=== PATIENT | female | born 1945 | race Caucasian/White ===

== ENCOUNTER 2025-03-10 10:13 | Observation (INO) ==
--- NOTE | 2025-03-10 11:19 | XRay Report ---
XR chest 1V portable HISTORY: 79 years-old Female cp, cough acute chest pain COMPARISON: 04/13/2018 TECHNIQUE: AP view of the chest FINDINGS: Cardiac silhouette is enlarged. Moderate to large hiatal hernia. No pneumothorax, pleural effusion, a irspace consolidation or pulmonary edema. Bones appear grossly intact. IMPRESSION: 1. Cardiomegaly without acute process. 2. Hiatal hernia. ACT 112: Negative or not required by law. The above report was generated using voice recognition software. It may contain grammatical, syntax o r spelling errors. Electronically signed by: Clark Bond M.D. 03/10/2025 11:18 AM
[2025-03-10] MEDS: BENZONATATE 100 MG CAPSULE PO ONE (11:27)
[2025-03-10] MEDS: FAMOTIDINE 20MG IV PUSH 20 MG/5 ML SYR IV STA (11:27)
[2025-03-10] MEDS: SODIUM CHLORIDE 0.9% 1,000 ML IV SCH (11:27)
[2025-03-10 11:51] LABS: Hematocrit (blood only) 37.6 % (37.0-47.0); Hemoglobin 13.5 g/dl (12.0-16.0); Immature Granulocytes # (auto) 0.04 K/uL (0.01-0.20); Immature Granulocytes % (auto) 0.4 %; Mean Corpuscular Hemoglobin 31.8 pg (25.0-34.0); Mean Corpuscular Volume 88.5 fL (80.0-100.0); Platelet Count 209 K/uL (130-400); RDW Standard Deviation 40.0 fL (36.4-46.3); Red Blood Count 4.25 M/uL (4.20-5.40); White Blood Count 10.70 K/ul (4.8-10.8)
[2025-03-10 12:09] LABS: Alanine Aminotransferase 18.0 U/L (7-52); Albumin Globulin Ratio 1.1 (0.9-2); Albumin Level 3.9 gm/dl (3.4-5.0); Alkaline Phosphatase 74.0 U/L (34-104); Anion Gap 7.0 (3-11); Bilirubin,Total 0.7 mg/dl (0.2-1.0); Blood Urea Nitrogen 6.0 mg/dl (6-23); Calcium 9.7 mg/dl (8.6-10.3); Carbon Dioxide 28.0 mmol/L (21-32); Chloride 90.0 mmol/L (98-107); Creatinine Clr Calc Pharmacy 60.0 ml/min; Globulin 3.6 gm/dl (2.5-4.0); Glucose 138.0 mg/dl (70-99(Fasting)); Lipase 12.0 U/L (11-82); Magnesium 1.7 mg/dl (1.7-2.4); Potassium 3.7 mmol/L (3.5-5.1); Sodium 125.0 mmol/L (136-145); Total Protein 7.5 gm/dl (6.0-8.3)
[2025-03-10 12:21] LABS: Chlamydia pneumoniae PCR Not Detected (NotDetected); Coronavirus 229E PCR Not Detected (NotDetected); Coronavirus CoV-2 (COVID19)PCR Not Detected (NotDetected); Coronavirus HKU1 PCR Not Detected (NotDetected); Coronavirus NL63 PCR Not Detected (NotDetected); Coronavirus OC43PCR Not Detected (NotDetected); Human Metapneumovirus PCR Not Detected (NotDetected); Parainfluenza Virus 1 PCR Not Detected (NotDetected); Parainfluenza Virus 2 PCR Not Detected (NotDetected); Parainfluenza Virus 3 PCR Not Detected (NotDetected); Parainfluenza Virus 4 PCR Not Detected (NotDetected); Respiratory Syncytial VirusPCR Not Detected (NotDetected); Rhinovirus/Enterovirus PCR Not Detected (NotDetected)
[2025-03-10 12:24] LABS: INR 1.1 (0.9-1.1); Prothrombin Time 11.4 Seconds (9.0-12.0)
--- NOTE | 2025-03-10 13:11 | Emergency Department Note ---
Impression & Plan Hyponatremia, Upper respiratory infection, Acute UTI (urinary tract infection) ED Provider Note ED Provider Note NAME: KEE BARNARD AGE:79 SEX: Female : 1945 ARRIVES VIA: private vehicle INFORMANT: Patient ED PROVIDER(s): Brook Hinds DO CHIEF COMPLAINT: Referred by PCPs office HPI: This is a 79-year-old female who presents to the emergency department due to concern for persistent cough, hoarseness, congestion, and fatigue. Patient states symptoms began at the end of last week. No known sick contact and no recent travel. She states overnight she developed chest pain additionally and was taking extra Tums. She called her PCPs office this morning and after discussing her symptoms they advise she come here for additional evaluation. At this time she has no chest pain and denies shortness of breath. She states her cough is only been intermittently productive of a green sputum. She states she does have some sinus pressure and a headache additionally. She states she has not had much of an appetite but has not had any overt vomiting or diarrhea. She denies any leg swelling. She states she is not typically prone to reflux. She states she did smoke for a few years in her early 20s, no diagnosis of asthma or COPD. She does not require any oxygen or using inhalers at home. She states she has been taking robitussin and mucinex for her URI symptoms. PAST MEDICAL HISTORY:See Below PAST SURGICAL HISTORY:See Below FAMILY HISTORY:See Below SOCIAL HISTORY:See Below HOME MEDICATIONS:See Below ALLERGIES:See Below VITALS:See Below PHYSICAL EXAMINATION: GENERAL: alert, well appearing, well nourished, no distress, non-toxic EYE EXAM: normal conjunctiva, PERRL and EOM's grossly intact OROPHARYNX: no exudate, no erythema, lips, buccal mucosa, and tongue normal and mucous membranes are dry, hoarse voice noted NECK: supple, no nuchal rigidity, no adenopathy, non-tender, no stridor LUNGS: Clear to auscultation. Normal chest wall mechanics, no w/r/r HEART: no murmurs, S1 normal and S2 normal ABDOMEN: abdomen soft, non-tender, normo-active bowel sounds, no masses, no rebound or guarding. SKIN: no rashes, petechiae, orbruising UPPER EXTREMITIES: upper extremities are grossly normal. FROM, nml pulses b/l. LOWER EXTREMITIES: No pitting edema. FROM, nml pulses b/l. NEURO EXAM: Normal sensorium, cranial nerves II-XII grossly intact, normal speech, no facial droop,nogross weakness of arms, no gross weakness of legs. Gross sensation intact. No ataxia. Vital Signs: reviewed and remarkable Differential Diagnosis: uri, bronchitis, pna, chf, acs, pericardial effusion, sinusitis, dehydration, karoline, as well as others were considered MEDICAL DECISION MAKING: THis is a 79 yo female who presents to the ER after being referred here by her PCP due to recent URI symptoms and chest pain overnight that she thought was heartburn. Labs drawn and sent, IV established, EKG and CXR performed and interpreted at bedside, and patient placed on telemetry. Nasal swab obtained and sent for viral panel. She was given tessalon perle and famotidine initially. She was started on IVF due to dehydrated appearance clinically. CXR without evidence of pna or chf. Labs reassuring with exception of hyponatremia. No prior episodes noted on review of EMR. No recent medication changes. After noting hyponatremia, additional labs and UA added. IVF slowed to maintenance. UA suggestive of UTI additionally. I did review allergies with the patient and after discussion with the ED pharmacist opted to start IV rocephin. Patient updated on all results. Case discussed with the hospitalist team for further evaluation. Consultation(s): 1434: Discussed with Dr. Fernandez, [place] hospitalist team, for additional evaluation and mgmt. ER Treatment Provided: See below Diagnostics Interpreted By Me: -ECG: Sinus bradycardia at 58, normal axis, normal intervals, no acute ST/T wave changes -Cardiac Monitoring: An order was placed for continuous cardiac monitoring. The monitor shows a rate of 70 with normal sinus rhythm. -Laboratory studies: As stated above and show below. -Imaging studies: X-ray Chest: A single view study of the chest was reviewed and was negative for cardiomegaly, focal infiltrate, effusion, pulmonary edema, or wide mediastinum. Triage Nursing Note Reviewed Prior/Outside Records Reviewed Past Med/Surg History Problem List (Updated 03/10/25 @ 16:48 by Brice Fernandez MD, PhD) Viral syndrome Hypochloremia Acute UTI (urinary tract infection) (Acute) Upper respiratory infection (Acute) Hyponatremia (Acute) Atrial fibrillation with RVR on eliquis bid--follows with Dr. Spencer Paul with [facility] in [place], [place] Allergic rhinitis Hyperlipidemia Medical History History of diverticulosis History of basal cell carcinoma of skin Surgical History Hx of bilateral cataract extraction History of breast biopsy x2--all benign History of dilatation and curettage History of open reduction and internal fixation (ORIF) procedure right ankle fx repair 2004--hardware in place History of colonoscopy 10/07 No further screening History of Mohs micrographic surgery for skin cancer x2 History of wisdom tooth extraction History of strabismus surgery History of partial hysterectomy TVH, ovaries left in situ. Reports w/ mesh Hx of bladder repair surgery Family History (Updated 03/10/25 @ 15:58 by Brice Fernandez MD, PhD) Sister Diabetes Breast cancer Brother Diabetes Lung cancer Son Colon cancer Father , at 59 years of age from gastric carcinoma in the setting of tobacco abuse, ETOH abuse, and ingestion of preserved lunch meats. No problems noted. Mother , at 70 years of age from CVA in the setting of tobacco abuse, no ETOH abuse, no HTN, and no DM. No problems noted. Other Cancer No family history of adverse response to anesthesia Denies family history of Ovarian cancer Prostate cancer Myocardial infarction Colorectal cancer Uterine cancer Stroke Social History (Updated 03/10/25 @ 15:59 by Brice Fernandez MD, PhD) Smoking Status: Former smoker Tobacco Type: Cigarettes Age Started Using Tobacco: 23; Age Quit Using Tobacco: 26; packs per day: 0.5; Second Hand Exposure: No; Do You Dip or Chew Tobacco: No; Hx Alcohol Use: No Hx Substance Use: No Preferred Language: Bulgarian Communication Ability: Effective Visual Impairment: Limited Hearing Ability: Normal Piece Dyer Required: No Beliefs That Will Affect Care: None marital status: Current Living Situation: Spouse current occupational status: retired How many Children do You have: 2 How many Children do You have Comment: 2 sons, alive and well. Feels Safe at Home: Yes Childhood Exposure to Second-Hand Smoke: Yes Diet: regular caffeine: Yes during the past year weight has: remained stable Dental Care, Regularly: Yes Physical Activity Frequency: 3-4 Times per Week Seatbelt Use: always Sunscreen Use: Yes Assistive Devices: Glasses Allergies Allergies Allergy/AdvReac Type Severity Reaction Status Date / Time cephalexin Allergy Severe Rash Verified 03/08/25 13:26 adhesive Allergy Verified 03/08/25 13:26 Sulfa (Sulfonamide Allergy Verified 03/08/25 13:26 Antibiotics) Home Meds Home Medications Medication Instructions Recorded Confirmed calcium 500 mg (as 1 tab PO QAM 04/13/18 03/10/25 carbonate)-vitamin D3 5 mcg (200 unit) tablet (Calcium 500 + D) cholecalciferol (vitamin D3) 50 2,000 unit PO QAM 04/13/18 03/10/25 mcg (2,000 unit) tablet (Vitamin D3) cetirizine 10 mg tablet (Zyrtec) 10 mg PO DAILY PRN Allergy Symptoms 05/17/20 03/10/25 vit C 50 mg-E 15 unit-zinc cit 4.5 1 tab PO QAM 05/17/20 03/10/25 mg-lutein 2.5 mg-zeaxan chew tablet ([employer]) multivitamin (Daily Multi-Vitamin 1 tab PO DAILY 06/08/21 03/10/25 tablet) betamethasone dipropionate 0.05 % 1 applic topical BID PRN flaring 03/10/25 03/10/25 topical cream prednisolone acetate 1 % eye 1 drp OPL TID 03/10/25 03/10/25 drops,suspension Previous Rx's Medication Instructions Recorded Spacer for Inhaler #1 ea 08/18/24 metoprolol succinate 25 mg 25 mg PO QPM #90 tabs 09/07/24 tablet,extended release 24 hr apixaban 5 mg tablet (Eliquis) 5 mg PO BID #180 tabs 11/26/24 atorvastatin 20 mg tablet (Lipitor) 20 mg PO PM #90 tabs 12/15/24 Results & Data (ED) Vital Signs Vital Signs - 24 hr 03/10/25 10:35 03/10/25 13:12 03/10/25 13:30 Temperature 37.1 C Temperature Source Temporal Artery Scan Pulse Rate 77 67 71 Pulse Rate from SpO2 Sensor 64 Respiratory Rate 18 15 Respiratory Effort / Characteristics Non-Labored Spontaneous Respiratory Depth Normal Blood Pressure 149/74 H 148/90 H Blood Pressure Mean 99 109 Blood Pressure Position Sitting Pulse Oximetry 95 93 Oxygen Delivery Method Room Air Sepsis Recent Fever Within 48 Hours No Sepsis New/Unexplained Change in Mental Status No Sepsis Action Taken by Nursing No Action Required Laboratory Data 03/10/25 11:15 03/10/25 11:15 Lab Results 03/10/25 03/10/25 03/10/25 Range/Units 11:15 11:31 12:56 WBC 10.70 (4.8-10.8) K/ul RBC 4.25 (4.20-5.40) M/uL Hgb 13.5 (12.0-16.0) g/dl Hct 37.6 (37.0-47.0) % MCV 88.5 (80.0-100.0) fL MCH 31.8 (25.0-34.0) pg MCHC 35.9 (32.0-36.0) g/dL RDW Std Deviation 40.0 (36.4-46.3) fL RDW Coeff of Kel 12.3 (11.5-14.5) % Plt Count 209 (130-400) K/uL MPV 10.0 (9.4-12.4) fL Immature Gran % (Auto) 0.4 % Neut % (Auto) 81.2 % Lymph % (Auto) 10.8 % [place] % (Auto) 7.5 % Eos % (Auto) 0.0 % Baso % (Auto) 0.1 % Neut # (Auto) 8.69 H (1.40-6.50) K/uL Lymph # (Auto) 1.16 L (1.20-3.40) K/uL [place] # (Auto) 0.80 H (0.11-0.59) K/uL Eos # (Auto) 0.00 (0.00-0.50) K/uL Baso # (Auto) 0.01 (0.00-0.20) K/uL Immature Gran # (Auto) 0.04 (0.01-0.20) K/uL PT 11.4 (9.0-12.0) Seconds INR 1.1 (0.9-1.1) Sodium 125 L (136-145) mmol/L Potassium 3.7 (3.5-5.1) mmol/L Chloride 90 L (98-107) mmol/L Carbon Dioxide 28 (21-32) mmol/L Anion Gap 7 (3-11) BUN 6 (6-23) mg/dl Creatinine 0.66 (0.6-1.2) mg/dl Est Cr Clr Drug Dosing 60.0 ml/min eGFR 89.73 BUN/Creatinine Ratio 9.1 L (10-20) Glucose 138 H (70-99(Fasting)) mg/dl Osmolality 263 L (280-300) mOsm/kg Calcium 9.7 (8.6-10.3) mg/dl Phosphorus 2.7 (2.5-4.9) mg/dl Magnesium 1.7 (1.7-2.4) mg/dl Total Bilirubin 0.7 (0.2-1.0) mg/dl AST 21 (13-39) U/L ALT 18 (7-52) U/L Alkaline Phosphatase 74 (34-104) U/L Troponin I High Sens 10.5 (0-14) pg/ml Total Protein 7.5 (6.0-8.3) gm/dl Albumin 3.9 (3.4-5.0) gm/dl Globulin 3.6 (2.5-4.0) gm/dl Albumin/Globulin Ratio 1.1 (0.9-2) Lipase 12 (11-82) U/L TSH 1.549 (0.300-4.500) uIu/ml Urine Color Yellow Urine Appearance Cloudy A (Clear) Urine pH 6.5 (4.5-7.5) Ur Specific [place] 1.013 (1.000-1.030) Urine Protein Trace H (Negative) Urine Glucose (UA) Negative (Negative) Urine Ketones Negative (Negative) Urine Blood Trace H (Negative) Urine Nitrite Negative (Negative) Urine Bilirubin Negative (Negative) Urine Urobilinogen Negative (Negative) Ur Leukocyte Esterase 2+ H (Negative) Urine WBC (Auto) >50 H (0-5) /hpf Urine RBC (Auto) 0-2 (0-2) /hpf U Hyaline Cast (Auto) 3-5 H (0-2) /lpf U Epithel Cells (Auto) 0-2 (0-2) /hpf Urine Bacteria (Auto) 4+ H (None Seen) Urine Comment Adenovirus (PCR) Not Detected (NotDetected) B. pertussis DNA (PCR) Not Detected (NotDetected) B.parapertussis DNA PCR Not Detected (NotDetected) C. pneumoniae DNA (PCR) Not Detected (NotDetected) Coronavirus OC43 (PCR) Not Detected (NotDetected) Coronavirus HKU1 (PCR) Not Detected (NotDetected) Coronavirus 229E (PCR) Not Detected (NotDetected) SARS-CoV-2 (PCR) Not Detected (NotDetected) Coronavirus NL63 (PCR) Not Detected (NotDetected) Human Metapneumovir PCR Not Detected (NotDetected) Influenza Type A (PCR) Not Detected (NotDetected) Influenza Type B (PCR) Not Detected (NotDetected) M. pneumoniae (PCR) Not Detected (NotDetected) Parainfluenza 1 (PCR) Not Detected (NotDetected) Parainfluenza 2 (PCR) Not Detected (NotDetected) Parainfluenza 3 (PCR) Not Detected (NotDetected) Parainfluenza 4 (PCR) Not Detected (NotDetected) RSV (PCR) Not Detected (NotDetected) Entero/Rhino (PCR) Not Detected (NotDetected) Administered Medications Acetaminophen (Acetaminophen 325 Mg Tab) 650 mg PO Q6H PRN PRN Reason: pain 1-10;WHITLOCK;T>100.4F Stop: 04/09/25 14:12 Last Admin: 03/10/25 19:59 Dose: 650 mg Documented By: mari Apixaban (Apixaban 5 Mg Tablet) 5 mg PO BID DELON Stop: 04/09/25 20:59 Last Admin: 03/10/25 19:59 Dose: 5 mg Documented By: mari Sodium Chloride (Nss) 1,000 mls @ 64 mls/hr IV .[id number] ONE Stop: 03/11/25 05:53 Last Admin: 03/10/25 14:55 Dose: 64 mls/hr Documented By: DONNA Metoprolol Succinate (Metoprolol Succ 25mg Ext Rel Tab) 25 mg PO QPM DELON Stop: 04/09/25 20:59 Last Admin: 03/10/25 19:59 Dose: 25 mg Documented By: mari Prednisolone Acetate (Prednisolone Acetate 1% Op Susp 5 Ml Btl) 1 drops OPL TID DELON Stop: 04/09/25 20:59 Last Admin: 03/10/25 20:01 Dose: Not Given Documented By: asg Discontinued Medications Benzonatate (Benzonatate 100 Mg Capsule) 100 mg PO NOW ONE Stop: 03/10/25 10:54 Last Admin: 03/10/25 11:27 Dose: 100 mg Documented By: ASIA Famotidine (Pepcid 20mg Iv Push) 20 mg in 5 mls @ 2.5 mls/min IV NOW STA Stop: 03/10/25 10:54 Last Admin: 03/10/25 11:27 Dose: 2.5 mls/min Documented By: ASIA Sodium Chloride (Nss) 1,000 mls @ 250 mls/hr IV .Q4H DELON Stop: 03/13/25 10:59 Last Admin: 03/10/25 15:19 Dose: Not Given Documented By: Infusion: 03/10/25 15:06 Dose: Infused Documented By: Admin: 03/10/25 11:27 Dose: 250 mls/hr Documented By: ASIA Acetaminophen (Ofirmev) 1,000 mg in 100 mls @ 400 mls/hr IV NOW STA Stop: 03/10/25 13:28 Last Infusion: 03/10/25 14:01 Dose: Infused Documented By: Admin: 03/10/25 13:35 Dose: 400 mls/hr Documented By: CC Ceftriaxone Sodium (Rocephin) 2,000 mg in 50 mls @ 100 mls/hr IV NOW STA Stop: 03/10/25 13:45 Last Infusion: 03/10/25 14:37 Dose: Infused Documented By: Admin: 03/10/25 14:03 Dose: 100 mls/hr Documented By: CEF Imaging Data Radiologist's Impression: Chest X-Ray 03/10/25 10:53 XR chest 1V portable HISTORY: 79 years-old Female cp, cough acute chest pain COMPARISON: 04/13/2018 TECHNIQUE: AP view of the chest FINDINGS: Cardiac silhouette is enlarged. Moderate to large hiatal hernia. No pneumothorax, pleural effusion, airspace consolidation or pulmonary edema. Bones appear grossly intact. IMPRESSION: 1. Cardiomegaly without acute process. 2. Hiatal hernia. ACT 112: Negative or not required by law. The above report was generated using voice recognition software. It may contain grammatical, syntax or spelling errors. Electronically signed by: Clark Bond M.D. 03/10/2025 11:18 AM Discharge Plan Visit Data Chief Complaint: Cough Stated Complaint: COUGH, SINUS PAIN, HEART BURN OVERNIGHT, NAUSEA ED Provider: Brook Hinds Discharge Problem: Hyponatremia, Upper respiratory infection, Acute UTI (urinary tract infection) Patient Disposition: Admitted As Inpatient Condition: Fair Discharge Instructions Interventions: ED Discharge Assessment Last Done: 03/10/25 16:24
[2025-03-10 13:12] LABS: Appearance Urine Cloudy (Clear); Bacteria Urine Automated 4+ (None Seen); Epithelial Cell Urine Auto 0-2 /hpf (0-2); Glucose Urine UA Negative (Negative); RBC Urine Automated 0-2 /hpf (0-2); WBC Urine Automated >50 /hpf (0-5)
[2025-03-10] MEDS: ACETAMINOPHEN 1,000 MG/100 ML VIAL IV STA (13:35)
[2025-03-10 13:37] LABS: Thyroid Stimulating Hormone 1.549 uIu/ml (0.300-4.500)
[2025-03-10] MEDS: cefTRIAXone SODIUM 2,000 MG/50 ML BAG IV STA (14:03)
[2025-03-10] MEDS: SODIUM CHLORIDE 0.9% 1,000 ML IV ONE (14:55)
--- NOTE | 2025-03-10 16:01 | History & Physical Report ---
Date of Service March 10, 2025 Assessment & Plan (1) Hyponatremia: Plan: As above in the History of Present Illness. (2) Hypochloremia: Plan: As above in the History of Present Illness. (3) Acute UTI (urinary tract infection): Plan: As above in the History of Present Illness. (4) Viral syndrome: Plan: As above in the History of Present Illness. History of Present Illness Chief Complaint: "On Saturday morning (03/06/2025, 9:00am), I woke up with post-nasal drip. I was also coughing, but nothing came up and I did not have a sore throat. No blood in my spit. On Saturday afternoon (03/08/2025, 1:00pm), I went to see my PCP Dr. Cb Oliva and he felt that I had a viral infection. He said to give it two or three days and see if I got better or worse. On Saturday (03/10/2025, 8:00am), I had a hoarse voice, but still no soreness in my throat and I was still coughing and congested in the nose, so my voice sounds different. I did not have any fever or chills. I called my PCP Dr. Cb Oliva on Saturday (03/10/2025, 8:15am), and he told me to go to the hospital and get checkd out. The ER doc said that I have a urinary tract infection and that my sodium level is low. The ER doc started me on some IV antibiotics and IV fluid." Primary Care Provider: Cb Oliva DO 79 years old female with PMH of FULL CODE, overweight with BMI 26.5 (height 154.9 cm; weight 63.5 kg), hyperlipidemia on atorvastatin 20mg PO qpm, paroxysmal AFIB on metoprolol succinate 25mg PO qpm and apixaban 5mg PO bid, allergic rhinitis on cetirizine 10mg PO daily prn allergies, and basal cell carcinoma on nasal bridge, s/p resection ~10 years ago ([place], [place]), now in clinical remission, who reports: "On Saturday (03/06/2025, 9:00am), I woke up with post-nasal drip. I was also coughing, but nothing came up and I did not have a sore throat. No blood in my spit. On Saturday afternoon (03/08/2025, 1:00pm), I went to see my PCP Dr. Cb Oliva and he felt that I had a viral infection. He said to give it two or three days and see if I got better or worse. On Saturday (03/10/2025, 8:00am), I had a hoarse voice, but still no soreness in my throat and I was still coughing and congested in the nose, so my voice sounds different. I did not have any fever or chills. I called my PCP Dr. Cb Oliva on Saturday morning (03/10/2025, 8:15am), and he told me to go to the hospital and get checkd out. The ER doc said that I have a urinary tract infection and that my sodium level is low. The ER doc started me on some IV antibiotics and IV fluid." Patient denies antecedent/coincident anosmia, ageusia, hypogeusia, myalgias, arthralgias, anorexia, weight loss, weight gain, fevers, chills, diaphoresis, wheeze, sore throat, chest pains, palpitations, pleurisy, nausea, vomiting, diarrhea, abdominal pain, pelvic pain, hematemesis, hematochezia, melena, hematu don, dysuria, frequency, urgency, headaches, dizziness, lightheadedness, visual changes, hearing changes, weakness, falls, syncope, trauma, travel history, sick contacts, or food/drug ingestions novel or new. All other review of systems are reported as negative by the patient on admission date 03/10/2025. In [facility] ER bed #A10, patient was afebrile @ 36.8 degrees Celsius, HR 61, O2 sat 95% on room air, and BP 157/78 (03/10/2025, 1:27pm). Exam was noted for nasal congestion with a sonorous, nasal twangy, raspy voice with no pharyngeal erythema, pharyngeal edema, pharyngeal/uvular vesicle formation, or pharyngeal exudate. In addition, there was no enanthem and no macroglossia, tongue fissuring, strawberry tongue, or circumoral pallor. In addition, there was no flank tenderness. Labs in [facility] ER bed #A10 included: U/A (03/10/2025, 12:56pm): cloudy yellow, LE 2+, nitrite-, WBC > 50, RBC 0-2, epithelial cells 0-2, bacteria 4+ Urine culture (03/10/2025, 12:56pm): Na 125, K 3.7, Cl 90, BUN 6, creatinine 0.66, glucose 138, Ca 9.7, PO4 2.7, Mg 1.7, AST 21, ALT 18, ALK PHOS 74, total bilirubin 0.7 (03/10/2025, 11:15am). MRSA nares screen (03/10/2025, 4:28pm): [facility] respiratory pathogen PCR panel (03/10/2025, 4:28pm): Troponin-I #1 10.5 pg/mL (03/10/2025, 11:15am). Lipase 12 U/L (03/10/2025, 11:15am). TSH 1.549 uIU/mL (03/10/2025, 11:15am). WBC 10.70, N81 L11 M8, Hb 13.5, MCV 88.5, MCHC 35.9, platelet 209 (03/10/2025, 11:15am). INR 1.1 (03/10/2025, 11:15am). Additional testing in [facility] ER bed #A10 included: Portable CXR (03/10/2025, 10:53am): 1. Cardiomegaly, hiatal hernia. 2. No infiltrate, effusion, pulmonary vascular congestion, or pneumothorax. (by my review). EKG #1 (03/10/2025, 11:10am): sinus nimisha @ 58, [place] 194, QTC 406, TWI in III, V1 V2, no acute ST depressions/elevations or q waves (by my review). EKG old (04/14/2025, 6:17am): sinus nimisha @ 56, [place] 194, QTC 407, TWI in III, V1, no acute ST depressions/elevations or q waves (by my review). Patient was subsequently admitted to the inpatient hospitalist service @ [facility] on 03/10/2025 with the following diagnoses: 1. Acute hypovolemic hyponatremia with admitting Na 125 mmol/L (03/10/2025, 11:15am). 2. Acute hypovolemic hypochloremia with admitting Cl 90 mmol/L (03/10/2025, 11:15am). 3. Acute UTI (as suggested by 03/10/2025, 12:56pm U/A). 4. Acute viral syndrome. To address #1, patient was started on 1 liter of 0.9% NS @ 250 mL/hr (03/10/2025, 11:27am) in [facility] ER bed #A10, followed by 1 liter of 0.9% NS @ 64 mL/hr (03/10/2025, 2:55pm), based on a delivery rate of 1 mL of 0.9% NS per kg of body weight per hour, and a body weight of 63.5 kg, in [facility] ER bed #C08. Of note, by infusing 1 liter of 0.9% NS @ 64 mL/hr (03/10/2025, 2:55pm), based on a delivery rate of 1 mL of 0.9% NS per kg of body weight per hour, and a body weight of 63.5 kg, in [facility] ER bed #C08, the likelihood that patient's sodium level will rise more than 8-10 mmol per 24 hours is unlikely, and which is worth noting as increases in serum sodium levels at a rate that exceeds 8-10 mmol per 24 hours increases the risk for any patient including this patient to develop osmotic demyelination syndrome (aka, central pontine myelinolysis) wherein the insulating myelin sheath is damaged in the brainstem, subsequently leading to irreversible neurologic embarrassment. I will check repeat Na level in the 03/11/2025 am. To address #2, patient was started on 1 liter of 0.9% NS @ 250 mL/hr (03/10/2025, 11:27am) in [facility] ER bed #A10, followed by 1 liter of 0.9% NS @ 64 mL/hr (03/10/2025, 2:55pm), based on a delivery rate of 1 mL of 0.9% NS per kg of body weight per hour, and a body weight of 63.5 kg, in [facility] ER bed #C08. Of note, by infusing 1 liter of 0.9% NS @ 64 mL/hr (03/10/2025, 2:55pm), based on a delivery rate of 1 mL of 0.9% NS per kg of body weight per hour, and a body weight of 63.5 kg, in [facility] ER bed #C08, the likelihood that patient's sodium level will rise more than 8-10 mmol per 24 hours is unlikely, and which is worth noting as increases in serum sodium levels at a rate that exceeds 8-10 mmol per 24 hours increases the risk for any patient including this patient to develop osmotic demyelination syndrome (aka, central pontine myelinolysis) wherein the insulating myelin sheath is damaged in the brainstem, subsequently leading to irreversible neurologic embarrassment. I will check repeat Na level in the 03/11/2025 am. To address #3, patient was started on ceftriaxone 2g IV x 1 dose (03/10/2025, 2:03pm) in [facility] ER bed #A10. Patient will continue with ceftriaxone 2g IV daily (day #2/3 on 03/11/2025, 9:00am)(day #3/3 on 03/12/2025, 9:00am) in [facility] ER bed #C08. I will check vitals, genito-urinary exam, WBC w/diff, urine culture (03/10/2025, 12:56pm) in the 03/11/2025 am. To address #4, patient awaits [facility] respiratory pathogen PCR panel testing (03/10/2025, 4:28pm). In the interim, patient has been placed under contact/droplet precautions. Allergies Allergy/AdvReac Type Severity Reaction Status Date / Time cephalexin Allergy Severe Rash Verified 03/08/25 13:26 adhesive Allergy Verified 03/08/25 13:26 Sulfa (Sulfonamide Allergy Verified 03/08/25 13:26 Antibiotics) Home Medications Medication Instructions Recorded Confirmed Type calcium 500 mg (as 1 tab PO QAM 04/13/18 03/10/25 History carbonate)-vitamin D3 5 mcg (200 unit) tablet (Calcium 500 + D) cholecalciferol (vitamin D3) 50 2,000 unit PO QAM 04/13/18 03/10/25 History mcg (2,000 unit) tablet (Vitamin D3) cetirizine 10 mg tablet (Zyrtec) 10 mg PO DAILY PRN Allergy Symptoms 05/17/20 03/10/25 History vit C 50 mg-E 15 unit-zinc cit 4.5 1 tab PO QAM 05/17/20 03/10/25 History mg-lutein 2.5 mg-zeaxan chew tablet (Bitbrains) multivitamin (Daily Multi-Vitamin 1 tab PO DAILY 06/08/21 03/10/25 History tablet) Spacer for Inhaler #1 ea 08/18/24 03/08/25 Rx metoprolol succinate 25 mg 25 mg PO QPM #90 tabs 09/07/24 03/10/25 Rx tablet,extended release 24 hr apixaban 5 mg tablet (Eliquis) 5 mg PO BID #180 tabs 11/26/24 03/10/25 Rx atorvastatin 20 mg tablet (Lipitor) 20 mg PO PM #90 tabs 12/15/24 03/10/25 Rx betamethasone dipropionate 0.05 % 1 applic topical BID PRN flaring 03/10/25 03/10/25 History topical cream prednisolone acetate 1 % eye 1 drp OPL TID 03/10/25 03/10/25 History drops,suspension Past Med/Surg History Problem List (Updated 03/10/25 @ 16:48 by Brice Fernandez MD, PhD) Viral syndrome Hypochloremia Acute UTI (urinary tract infection) (Acute) Upper respiratory infection (Acute) Hyponatremia (Acute) Atrial fibrillation with RVR on eliquis bid--follows with Dr. Spencer Paul with [facility] in [place], [place] Allergic rhinitis Hyperlipidemia Medical History History of diverticulosis History of basal cell carcinoma of skin Surgical History Hx of bilateral cataract extraction History of breast biopsy x2--all benign History of dilatation and curettage History of open reduction and internal fixation (ORIF) procedure right ankle fx repair 2004--hardware in place History of colonoscopy 10/07 No further screening History of Mohs micrographic surgery for skin cancer x2 History of wisdom tooth extraction History of strabismus surgery History of partial hysterectomy TVH, ovaries left in situ. Reports w/ mesh Hx of bladder repair surgery Family History (Updated 03/10/25 @ 15:58 by Brice Fernandez MD, PhD) Sister Diabetes Breast cancer Brother Diabetes Lung cancer Son Colon cancer Father , at 59 years of age from gastric carcinoma in the setting of tobacco abuse, ETOH abuse, and ingestion of preserved lunch meats. No problems noted. Mother , at 70 years of age from CVA in the setting of tobacco abuse, no ETOH abuse, no HTN, and no DM. No problems noted. Other Cancer No family history of adverse response to anesthesia Denies family history of Ovarian cancer Prostate cancer Myocardial infarction Colorectal cancer Uterine cancer Stroke Social History (Updated 03/10/25 @ 15:59 by Brice Fernandez MD, PhD) Smoking Status: Former smoker Tobacco Type: Cigarettes Age Started Using Tobacco: 23; Age Quit Using Tobacco: 26; packs per day: 0.5; Second Hand Exposure: No; Do You Dip or Chew Tobacco: No; Hx Alcohol Use: Yes Alcohol type: beer and wine Alcohol Intake Frequency: 2-4 x/Month Hx Substance Use: No Preferred Language: Russian Communication Ability: Effective Visual Impairment: Limited Hearing Ability: Normal Baseball Player Required: No marital status: Current Living Situation: Spouse current occupational status: retired How many Children do You have: 2 How many Children do You have Comment: 2 sons, alive and well. Feels Safe at Home: Yes Childhood Exposure to Second-Hand Smoke: Yes Diet: regular caffeine: Yes during the past year weight has: remained stable Dental Care, Regularly: Yes Physical Activity Frequency: 3-4 Times per Week Seatbelt Use: always Sunscreen Use: Yes Assistive Devices: Glasses Review of Systems Constitutional: As above in the History of Present Illness. Physical Exam Constitutional: General: Comfortable, cooperative, coherent. Wide awake and alert. Not confused, lethargic, or obtunded. Patient speaks in complete, fluent, and articulate sentences without pause, interruption, cough, or wheeze. HEENT: NC/AT. EOMI. PERRL. No nystagmus, gaze paresis, anisocoria, miosis, mydriasis, chemosis, hyphema, scleral injection, conjunctivitis, or pterygium. No otorrhea. No rhinorrhea. Nasal congestion with a sonorous, nasal twangy, raspy voice with no pharyngeal erythema, pharyngeal edema, pharyngeal/uvular vesicle formation, or pharyngeal exudate. No macroglossia, tongue fissuring, or strawberry tongue. No circumoral pallor. Neck: Supple, no stridor, bruit, or goiter. Jugular venous pressure 5cm above the sternal angle of Devyn, which is typically 5 cm above the right atrium. Lymph: No anterior/posterior cervical lymphadenopathy, supraclavicular/infraclavicular lymphadenopathy, axilla/epitrochlear/inguinal lymphadenopathy. Chest: Symmetric rise and fall with respirations. Non-tender to palpation. Heart: RRR, S1 and S2. No S3 or S4 summation gallop. No tripartite friction rub. No murmur. Lungs: Clear to auscultation and percussion. No audible expiratory wheeze, egophony, pectoriloquy, increase in tactile fremitus, or flatness/dullness to percussion at the bases. Abd: Soft, non-tender, non-distended. Bowel sounds auscultated in all 4 quadrants. No rebound, guarding, Rich's sign, or organomegaly. No flank tenderness. Ext: No clubbing, cyanosis, or edema. 2+ pedal pulses bilaterally. Skin: No decubitus ulcer or enanthem or exanthem. Neuro: No tremors, tics, or myoclonus. DTR+. Urology: No figueroa catheter. No purewick. No urethral discharge. Results & Data Results & Data Vital Signs (Past 12 Hours) Vital Signs Temp Pulse Resp BP Pulse Ox O2 Del Method 03/10/25 14:53 152/81 H 03/10/25 14:30 134/88 03/10/25 14:15 61 20 94 03/10/25 13:30 71 15 148/90 H 93 03/10/25 13:12 67 03/10/25 10:35 37.1 C 77 18 149/74 H 95 Room Air Laboratory Results As above in the History of Present Illness. Diagnostic Findings As above in the History of Present Illness. Medications Administered As above in the History of Present Illness. Code Status & VTE Plan VTE Prophylaxis Plan VTE Prophylaxis will be ordered: Yes PG Care Time/CCT Total # of Minutes Spent Total Time Spent with Patient: Total time spent is greater than 50% in coordination of care (as documented) at patient's floor/unit and/or counseling patient: Coding Level of Care Code 54604 INT INP/OBS CARE 2/55MIN Diagnoses Hyponatremia E87.1 Hypochloremia E87.8 Acute UTI (urinary tract infection) N39.0 Viral syndrome B34.9
[2025-03-10 18:11] LABS: Chlamydia pneumoniae PCR Not Detected (NotDetected); Coronavirus 229E PCR Not Detected (NotDetected); Coronavirus CoV-2 (COVID19)PCR Not Detected (NotDetected); Coronavirus HKU1 PCR Not Detected (NotDetected); Coronavirus NL63 PCR Not Detected (NotDetected); Coronavirus OC43PCR Not Detected (NotDetected); Human Metapneumovirus PCR Not Detected (NotDetected); Parainfluenza Virus 1 PCR Not Detected (NotDetected); Parainfluenza Virus 2 PCR Not Detected (NotDetected); Parainfluenza Virus 3 PCR Not Detected (NotDetected); Parainfluenza Virus 4 PCR Not Detected (NotDetected); Respiratory Syncytial VirusPCR Not Detected (NotDetected); Rhinovirus/Enterovirus PCR DETECTED (NotDetected)
[2025-03-10] MEDS: APIXABAN 5 MG TABLET PO SCH (19:59)
[2025-03-10] MEDS: METOPROLOL SUCC 25MG EXT REL TAB PO SCH (19:59)
[2025-03-10] MEDS: ACETAMINOPHEN 325 MG TAB PO PRN (19:59)
[2025-03-10] MEDS: prednisoLONE acetate 1% OP SUSP 5 ML BTL OPL SCH (20:01)
[2025-03-10] MEDS ORDERED: HEPARIN SOD 5,000 UNIT/0.5 ML VIAL SQ SCH (21:00)
[2025-03-11] MEDS: BENZONATATE 100 MG CAPSULE PO PRN (06:04)
--- NOTE | 2025-03-11 06:10 | Electrocardiogram Report ---
Test Reason : Blood Pressure : */* mmHG Vent. 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
[2025-03-11 06:25] LABS: Hematocrit (blood only) 35.4 % (37.0-47.0); Hemoglobin 11.9 g/dl (12.0-16.0); Immature Granulocytes # (auto) 0.03 K/uL (0.01-0.20); Immature Granulocytes % (auto) 0.3 %; Mean Corpuscular Hemoglobin 30.1 pg (25.0-34.0); Mean Corpuscular Volume 89.6 fL (80.0-100.0); Platelet Count 199 K/uL (130-400); RDW Standard Deviation 41.5 fL (36.4-46.3); Red Blood Count 3.95 M/uL (4.20-5.40); White Blood Count 8.64 K/ul (4.8-10.8)
[2025-03-11 06:48] LABS: Anion Gap 8.0 (3-11); Blood Urea Nitrogen 4.0 mg/dl (6-23); Calcium 8.7 mg/dl (8.6-10.3); Carbon Dioxide 29.0 mmol/L (21-32); Chloride 98.0 mmol/L (98-107); Creatinine Clr Calc Pharmacy 74.7 ml/min; Glucose 105.0 mg/dl (70-99(Fasting)); Potassium 3.6 mmol/L (3.5-5.1); Sodium 135.0 mmol/L (136-145)
[2025-03-11 08:42] VITALS: BP 145/82; PULSE 65; RESP 16; TEMP 97.7; O2SAT 94
[2025-03-11] MEDS: cefTRIAXone SODIUM 1,000 MG/50 ML BAG IV SCH (09:45)
--- NOTE | 2025-03-11 11:45 | Discharge Summary ---
Discharge Summary Date of Service March 11, 2025 Principal Dx & Hospital Course #1 = Principal Diagnosis (1) Hyponatremia: As below in the Admission History of Present Illness. (2) Hypochloremia: As below in the Admission History of Present Illness. (3) Acute UTI (urinary tract infection): As below in the Admission History of Present Illness. (4) Viral syndrome: As below in the Admission History of Present Illness. Admission HPI Per Admitting Provider 79 years old female with PMH of FULL CODE, overweight with BMI 26.5 (height 154.9 cm; weight 63.5 kg), hyperlipidemia on atorvastatin 20mg PO qpm, paroxysmal AFIB on metoprolol succinate 25mg PO qpm and apixaban 5mg PO bid, allergic rhinitis on cetirizine 10mg PO daily prn allergies, and basal cell carcinoma on nasal bridge, s/p resection ~10 years ago ([place], [place]), now in clinical remission, who reports: "On Saturday morning (03/06/2025, 9:00am), I woke up with post-nasal drip. I was also coughing, but nothing came up and I did not have a sore throat. No blood in my spit. On Saturday afternoon (03/08/2025, 1:00pm), I went to see my PCP Dr. Cb Oliva and he felt that I had a viral infection. He said to give it two or three days and see if I got better or worse. On Saturday (03/10/2025, 8:00am), I had a hoarse voice, but still no soreness in my throat and I was still coughing and congested in the nose, so my voice sounds different. I did not have any fever or chills. I called my PCP Dr. Cb Oliva on Saturday morning (03/10/2025, 8:15am), and he told me to go to the hospital and get checkd out. The ER doc said that I have a urinary tract infection and that my sodium level is low. The ER doc started me on some IV antibiotics and IV fluid." Patient denies antecedent/coincident anosmia, ageusia, hypogeusia, myalgias, arthralgias, anorexia, weight loss, weight gain, fevers, chills, diaphoresis, wheeze, sore throat, chest pains, palpitations, pleurisy, nausea, vomiting, diarrhea, abdominal pain, pelvic pain, hematemesis, hematochezia, melena, hematuria, dysuria, frequency, urgency, headaches, dizziness, lightheadedness, visual changes, hearing changes, weakness, falls, syncope, trauma, travel history, sick contacts, or food/drug ingestions novel or new. All other review of systems are reported as negative by the patient on admission date 03/10/2025. In [facility] ER bed #A10, patient was afebrile @ 36.8 degrees Celsius, HR 61, O2 sat 95% on room air, and BP 157/78 (03/10/2025, 1:27pm). Exam was noted for nasal congestion with a sonorous, nasal twangy, raspy voice with no pharyngeal erythema, pharyngeal edema, pharyngeal/uvular vesicle formation, or pharyngeal exudate. In addition, there was no enanthem and no macroglossia, tongue fissuring, strawberry tongue, or circumoral pallor. In addition, there was no flank tenderness. Labs in [facility] ER bed #A10 included: U/A (03/10/2025, 12:56pm): cloudy yellow, LE 2+, nitrite-, WBC > 50, RBC 0-2, epithelial cells 0-2, bacteria 4+ Urine culture (03/10/2025, 12:56pm): > 100,000 cfu/mL E. coli with antibiotic sensitivity panel pending as of 03/11/2025, 11:28am. Na 125, K 3.7, Cl 90, BUN 6, creatinine 0.66, glucose 138, Ca 9.7, PO4 2.7, Mg 1.7, AST 21, ALT 18, ALK PHOS 74, total bilirubin 0.7 (03/10/2025, 11:15am). Na 135, K 3.6, Cl 98, BUN 4, creatinine 0.53, glucose 105, Ca 8.7 (03/11/2025, 5:24am). MRSA nares screen (03/10/2025, 4:28pm): negative BIOFIRE respiratory pathogen PCR panel (03/10/2025, 4:28pm): enterovirus/rhinovirus+ Troponin-I #1 10.5 pg/mL (03/10/2025, 11:15am). Lipase 12 U/L (03/10/2025, 11:15am). TSH 1.549 uIU/mL (03/10/2025, 11:15am). WBC 10.70, N81 L11 M8, Hb 13.5, MCV 88.5, MCHC 35.9, platelet 209 (03/10/2025, 11:15am). WBC 8.64, N77 L14 M8 E1, Hb 11.9, MCV 89.6, MCHC 33.6, platelet 199 (03/11/2025, 5:24am). INR 1.1 (03/10/2025, 11:15am). Additional testing in [facility] ER bed #A10 included: Portable CXR (03/10/2025, 10:53am): 1. Cardiomegaly, hiatal hernia. 2. No infiltrate, effusion, pulmonary vascular congestion, or pneumothorax. (by my review). EKG #1 (03/10/2025, 11:10am): sinus nimisha @ 58, AZ 194, QTC 406, TWI in III, V1 V2, no acute ST depressions/elevations or q waves (by my review). EKG old (04/14/2025, 6:17am): sinus nimisha @ 56, AZ 194, QTC 407, TWI in III, V1, no acute ST depressions/elevations or q waves (by my review). Patient was subsequently admitted to the inpatient hospitalist service @ [facility] on 03/10/2025 with the following diagnoses: 1. Acute hypovolemic hyponatremia with admitting Na 125 mmol/L (03/10/2025, 11:15am). 2. Acute hypovolemic hypochloremia with admitting Cl 90 mmol/L (03/10/2025, 11:15am). 3. Acute UTI (as suggested by 03/10/2025, 12:56pm U/A). 4. Acute viral syndrome. To address #1, patient received 1 liter of 0.9% NS @ 250 mL/hr (03/10/2025, 11:27am) in [facility] ER bed #A10, followed by 1 liter of 0.9% NS @ 64 mL/hr (03/10/2025, 2:55pm), based on a delivery rate of 1 mL of 0.9% NS per kg of body weight per hour, and a body weight of 63.5 kg, in [facility] ER bed #C08. Of note, by infusing 1 liter of 0.9% NS @ 64 mL/hr (03/10/2025, 2:55pm), based on a delivery rate of 1 mL of 0.9% NS per kg of body weight per hour, and a body weight of 63.5 kg, in [facility] ER bed #C08, the likelihood that patient's sodium level will rise more than 8-10 mmol per 24 hours is unlikely, and which is worth noting as increases in serum sodium levels at a rate that exceeds 8-10 mmol per 24 hours increases the risk for any patient including this patient to develop osmotic demyelination syndrome (aka, central pontine myelinolysis) wherein the insulating myelin sheath is damaged in the brainstem, subsequently leading to irreversible neurologic embarrassment. Subsequently, acute hypovolemic hyponatremia RESOLVED with post-hydration Na 135 mmol/L (03/11/2025, 5:24am) and no complaints at all. Patient was subsequently discharged back to her home on 03/11/2025. Of final note, etiology of acute hypovolemic hyponatremia was most likely due to acute dehydration causing increased insensible losses of sodium via acute E. coli UTI-mediated natri-uresis. To address #2, patient received 1 liter of 0.9% NS @ 250 mL/hr (03/10/2025, 11:27am) in [facility] ER bed #A10, followed by 1 liter of 0.9% NS @ 64 mL/hr (03/10/2025, 2:55pm), based on a delivery rate of 1 mL of 0.9% NS per kg of body weight per hour, and a body weight of 63.5 kg, in [facility] ER bed #C08. Of note, by infusing 1 liter of 0.9% NS @ 64 mL/hr (03/10/2025, 2:55pm), based on a delivery rate of 1 mL of 0.9% NS per kg of body weight per hour, and a body weight of 63.5 kg, in [facility] ER bed #C08, the likelihood that patient's sodium level will rise more than 8-10 mmol per 24 hours is unlikely, and which is worth noting as increases in serum sodium levels at a rate that exceeds 8-10 mmol per 24 hours increases the risk for any patient including this patient to develop osmotic demyelination syndrome (aka, central pontine myelinolysis) wherein the insulating myelin sheath is damaged in the brainstem, subsequently leading to irreversible neurologic embarrassment. Subsequently, acute hypovolemic hypochloremia RESOLVED with post-hydration Cl 98 mmol/L (03/11/2025, 5:24am) and no complaints at all. Patient was subsequently discharged back to her home on 03/11/2025. Of final note, etiology of acute hypovolemic hypochloremia was most likely due to acute dehydration causing increased insensible losses of chloride via acute E. coli UTI-mediated natri-uresis. To address #3, patient received ceftriaxone 2g IV x 1 dose (03/10/2025, 2:03pm) in [facility] ER bed #A10, followed by ceftriaxone 2g IV daily x 1 dose (03/11/2025, 9:00am) in [facility] Med-Surg bed #E300-1. Patient tolerated both doses of ceftriaxone 2g IV very well, despite a recorded allergy to cephalexin (causing rash). Patient was subsequently discharged back to her home on 03/11/2025 with an electronic prescription for nitrofurantoin 100mg PO bid (start date 03/12/2025, stop date 03/14/2025, #6 capsules, no refills, transmitted to her [facility] pharmacy store #[id number], [address], [place] [address], on 03/11/2025, prior to hospital discharge back to her home on 03/11/2025. Of note, patient was advised to hold OFF her home-scheduled atorvastatin 20mg PO qhs on 03/11/2025 through 03/14/2025, as patient will be taking nitrofurantoin 100mg PO bid (start date 03/12/2025, stop date 03/14/2025) for the next 3 days, and patient can best avoid potential development of dyspepsia by holding OFF her home-scheduled atorvastatin 20mg PO qhs while she is taking nitrofurantoin 100mg PO bid. Patient reports that she will comply with this recommendation. To address #4, patient underwent BIOFIRE respiratory pathogen PCR panel testing (03/10/2025, 4:28pm). In the interim, patient was placed under contact/droplet precautions. BIOFIRE respiratory pathogen PCR panel testing (03/10/2025, 4:28pm) subsequently came back positive only for enterovirus/rhinovirus. Patient was subsequently discharged back to her home on 03/11/2025 OFF contact/droplet precautions. Discharge Exam Constitutional General: Comfortable, cooperative, coherent. Wide awake and alert. Not confused, lethargic, or obtunded. Patient speaks in complete, fluent, and articulate sentences without pause, interruption, cough, or wheeze. HEENT: NC/AT. EOMI. PERRL. No nystagmus, gaze paresis, anisocoria, miosis, mydriasis, chemosis, hyphema, scleral injection, conjunctivitis, or pterygium. No otorrhea. No rhinorrhea. Nasal congestion with a sonorous, nasal twangy, raspy voice with no pharyngeal erythema, pharyngeal edema, pharyngeal/uvular vesicle formation, or pharyngeal exudate. No macroglossia, tongue fissuring, or strawberry tongue. No circumoral pallor. Neck: Supple, no stridor, bruit, or goiter. Jugular venous pressure 5cm above the sternal angle of Devyn, which is typically 5 cm above the right atrium. Lymph: No anterior/posterior cervical lymphadenopathy, supraclavicular/infraclavicular lymphadenopathy, axilla/epitrochlear/inguinal lymphadenopathy. Chest: Symmetric rise and fall with respirations. Non-tender to palpation. Heart: RRR, S1 and S2. No S3 or S4 summation gallop. No tripartite friction rub. No murmur. Lungs: Clear to auscultation and percussion. No audible expiratory wheeze, egophony, pectoriloquy, increase in tactile fremitus, or flatness/dullness to percussion at the bases. Abd: Soft, non-tender, non-distended. Bowel sounds auscultated in all 4 quadrants. No rebound, guarding, Rich's sign, or organomegaly. No flank tenderness. Ext: No clubbing, cyanosis, or edema. 2+ pedal pulses bilaterally. Skin: No decubitus ulcer or enanthem or exanthem. Neuro: No tremors, tics, or myoclonus. DTR+. Urology: No figueroa catheter. No purewick. No urethral discharge. Discharge Plan Discharge Items Patient Disposition: Home - Self-Care Reason For Visit: ACUTE HYPOVOLEMIC HYPONATREMIA Discharge Diagnosis: 1. Acute hypovolemic hyponatremia with admitting Na 125 mmol/L (03/10/2025, 11:15am), RESOLVED with discharge Na 135 mmol/L (03/11/2025, 5:24am). 2. Acute hypovolemic hypochloremia with admitting Cl 90 mmol/L (03/10/2025, 11:15am), RESOLVED with discharge Cl 98 mmol/L (03/11/2025, 5:24am). 3. Acute E. coli UTI (as suggested by 03/10/2025, 12:56pm urine culture). 4. Acute enteroviral/rhinoviral infection (as noted on 03/10/2025 BIOFIRE respiratory pathogen PCR panel). Condition on Discharge: Fair Activity: Resume your previous activity Lifting: Gradually increase as tolerated Bathing: No limitations Sexual Activity: When tolerated Exercise/Sports: Gradually increase as tolerated Driving/Machine Use: No limitations Weightbearing: Full weightbearing Non-emergency contact: Primary Care Provider Call non-emergency contact if: you have any medication questions Follow-up/Referrals: Cb Oliva, DO [Primary Care Provider] - Diet: Heart Healthy Addtl Attending Provider Instructions: See your family doctor, Dr. Cb Oliva within 5-7 days of hospital discharge for routine follow up visit and to discuss final antibiotic sensitivity results of 03/10/2025, 12:56pm E. coli + urine culture). Pending Studies at Discharge: Yes Studies:: See your family doctor, Dr. Cb Oliva within 5-7 days of hospital discharge for routine follow up visit and to discuss final antibiotic sensitivity results of 03/10/2025, 12:56pm E. coli + urine culture). Stand-Alone Forms: My [facility] [employer], Smoking Cessation Medications and DC Order Prescriptions: New nitrofurantoin monohyd/m-cryst [Macrobid] 100 mg capsule 100 mg PO BID 3 Days Qty: 6 0RF Rx Instructions: must administer with a meal/food Continued metoprolol succinate 25 mg tablet extended release 24 hr 25 mg PO QPM Qty: 90 3RF Eliquis 5 mg tablet 5 mg PO BID Qty: 180 3RF OcuvFlexGen Eye Health 50 mg-15 unit- 4.5 mg-2.5 mg tablet,chewable 1 tab PO QAM Patient Comments: 03/10- otc unable to verify cetirizine [Zyrtec] 10 mg tablet 10 mg PO DAILY PRN (Reason: Allergy Symptoms) Patient Comments: 03/10- otc unable to verify multivitamin [Daily Multi-Vitamin] Tablet 1 tab PO DAILY Patient Comments: 03/10- otc unable to verify (DME) Spacer for Inhaler Misc See Rx Instructions .Route Qty: 1 0RF Rx Instructions: to use with albuterol calcium carbonate-vitamin D3 [Calcium 500 + D] 500 mg(1,250mg) -200 unit Tablet 1 tab PO QAM Patient Comments: 03/10- otc unable to verify cholecalciferol (vitamin D3) [Vitamin D3] 2,000 unit Tablet 2,000 unit PO QAM Patient Comments: 03/10- otc unable to verify prednisolone acetate 1 % drops,suspension 1 drp OPL TID betamethasone dipropionate 0.05 % cream 1 applic topical BID PRN (Reason: flaring) Patient Comments: 03/10- last filled 10/07 30 day supply Rx Instructions: Apply to areas of the trunk twice daily x 2 weeks as needed for flaring. Held atorvastatin [Lipitor] 20 mg tablet 20 mg PO PM Qty: 90 3RF Hold Instructions: Resume on 03/15/25. Hold OFF aatorvastatin 20mg PO qpm for the next 3 days (03/12/2025 - 03/14/2025), as you will be taking macrobid 100mg PO bid for the next 3 days (03/12/2025 - 03/14/2025). You can restart atorvastatin 20mg PO qpm on 03/15/2025. Discharge Orders: Discharge Order (Routine); Ordered 03/11/25 Ordered By: Brice Fernandez Admission Data Admit Date/Time: 03/10/25 14:13 Attending Provider: Brice Fernandez Admit Provider: Brice Fernandez Primary Care Provider: Cb Oliva Other Providers: Brice Fernandez Hospital Stay Data Consultations 03/10/25 13:35 ED Decision to Admit Stat Pending Results Patient Have Any Pending Studies at Discharge: Yes Discharge Instructions Given to Patient (Per Discharging Provider) See your family doctor, Dr. Cb Oliva within 5-7 days of hospital discharge for routine follow up visit and to discuss final antibiotic sensitivity results of 03/10/2025, 12:56pm E. coli + urine culture). Total Time Total Time Spent Total Time Spent (In Minutes): 35 minutes. Of this time period, 19 minutes were spent in coordinating patient's discharge. Coding Level of Care Code 56380 INP/OBS DISCH >30 MIN Diagnoses Hyponatremia E87.1 Hypochloremia E87.8 Acute UTI (urinary tract infection) N39.0 Viral syndrome B34.9
== END 2025-03-11 13:16 | disposition home or self-care (01) | DRG 690 ==
LOC: ED 10:13 → 3E 14:13 → INTOOBSV 14:13 → 3E 16:24